=== PATIENT | male | born 1980 | race Caucasian/White ===

== ENCOUNTER 2016-06-10 11:01 | Emergency (ER) | payer OTHER ==
--- NOTE | 2016-06-10 11:13 | ED Physician Documentation ---
General Adult - HISTORIAN Historian: patient - HPI Stated Complaint: Sore Throat Chief Complaint: General Adult Onset: days ago (2) Timing: still present Severity: moderate Further Comments: yes (Pt is a 35 yo male with sore throat and difficulty swallowing x 2 days. Pt has had fever and chills.) - ROS CONST: fever, chills, other (malaise) EYES/ENT: sore throat CVS/RESP: none GI/: none MS/SKIN/LYMPH: none - PAST HX Past History: none Allergies/Adverse Reactions: Allergies Allergy/AdvReac Type Severity Reaction Status Date / Time No Known Allergies Allergy Unverified 06/10/16 11:11 Home Medications: Ambulatory Orders Medication Instructions Recorded NK [NK] 06/10/16 - SOCIAL HX Smoking History: cigarettes - FAMILY HX Family History: No - VITAL SIGNS Vital Signs: Vital Signs Temp Pulse Resp BP Pulse Ox 100.4 F H 110 H 18 140/89 98 06/10/16 11:05 06/10/16 11:05 06/10/16 11:05 06/10/16 11:05 06/10/16 11:05 - REVIEWED ASSESSMENTS Nursing Assessment Reviewed: Yes Vitals Reviewed: Yes Progress - Progress Progress: Rx Penicillin VK 500 mg. Take one every 8 hrs for 10 days. Rx Prednisone 50 mg. Take one daily for 4 days. Start on 06/11/16. General Adult Physical Exam - PHYSICAL EXAM GENERAL APPEARANCE: moderate distress EENT: eye inspection normal, pharyngeal erythema NECK: normal inspection, supple, lymphadenopathy RESPIRATORY: no resp distress, chest non-tender CVS: reg rate & rhythm, heart sounds normal BACK: normal inspection SKIN: warm/dry, normal color EXTREMITIES: non-tender, normal range of motion, no evidence of injury NEURO: oriented X3, motor nml, sensation nml Discharge Clincal Impression: Strep pharyngitis Home Medications: Ambulatory Orders NK [NK] 06/10/16 Condition: Good Disposition: 01 HOME, SELF-CARE Decision to Admit: NO Decision Time: 11:23
[2016-06-10] MEDS: methylPREDNISolone SOD SUCC 40 MG/ML VIAL IM ONE (11:14)
[2016-06-10 11:43] VITALS: BP 128/78
== END 2016-06-10 11:30 | disposition home or self-care (01) ==
LOC: ED 11:01
DX: J02.0 Streptococcal pharyngitis (principal)
CPT/HCPCS: 87880; J2920; 96372; 99282; 99283; J1030

== ENCOUNTER 2017-02-07 00:28 | Emergency (ER) | payer OTHER ==
[2017-02-07 01:06] LABS: BASOPHILS % 0.8 (0.0-1.5); MEAN CORPUSCULAR HEMOGLOBIN 30.8 pg (28.0-34.0); MEAN CORPUSCULAR VOLUME 91.3 fl (80.0-100.0); MONOCYTES % 5.3 % (0.0-11.0); NEUTROPHILS # 4.9 # k/uL (1.4-7.7); eGFR (African) > 60; eGFR (Non-African) > 60
[2017-02-07 01:39] VITALS: BP 131/83
--- NOTE | 2017-02-07 03:13 | ED Physician Documentation ---
General Adult - HISTORIAN Historian: patient - HPI Stated Complaint: L ARM/FACE NUMB Chief Complaint: General Adult Onset: hours Timing: gone now Further Comments: yes (36 year old male patient presents with left arm and face numbness which started 1 hour ago. Reports he was going to sleep and felt the sudden onset. Denies fever, chills, cough, N/V or diarrhea.) - ROS CONST: no problems EYES/ENT: none CVS/RESP: none GI/: none MS/SKIN/LYMPH: none NEURO/PSYCH: denies: headache, fainting, dizziness, tingling, numbness, difficulty walking, difficulty with speech, anxiety, depression - PAST HX Past History: none Other History: none Allergies/Adverse Reactions: Allergies Allergy/AdvReac Type Severity Reaction Status Date / Time No Known Allergies Allergy Verified 02/07/17 00:52 Home Medications: Ambulatory Orders Medication Instructions Recorded NK [NK] 06/10/16 - SOCIAL HX Smoking History: non-smoker - FAMILY HX Family History: No - VITAL SIGNS Vital Signs: Vital Signs Temp Pulse Resp BP Pulse Ox 98.1 F 60 13 131/83 100 02/07/17 01:15 02/07/17 01:15 02/07/17 01:15 02/07/17 01:15 02/07/17 01:15 - REVIEWED ASSESSMENTS Nursing Assessment Reviewed: Yes Vitals Reviewed: Yes ED Results Lab/Radiology - Lab Results Lab Results: Lab Results 02/07/17 02/07/17 00:51 00:51 WBC 10.50 K/ul K/ul (4.00-12.00) RBC 4.89 M/ul M/ul (3.90-5.20) Hgb 15.0 g/dL g/dL (12.0-18.0) Hct 44.6 % % (37.0-53.0) MCV 91.3 fl fl (80.0-100.0) MCH 30.8 pg pg (28.0-34.0) MCHC 33.7 g/dL g/dL (30.0-36.0) RDW 12.8 % % (11.3-14.3) Plt Count 233 K/mm3 K/mm3 (130-400) Neut % (Auto) 47.1 % % (39.0-79.0) Lymph % (Auto) 39.6 % % (16.0-50.0) Boyle % (Auto) 5.3 % % (0.0-11.0) Eos % (Auto) 4.0 % % (0.0-6.8) Baso % (Auto) 0.8 (0.0-1.5) Neut # (Auto) 4.9 # k/uL # k/uL (1.4-7.7) Lymph # (Auto) 4.2 # k/uL H # k/uL (0.6-4.0) Boyle # (Auto) 0.6 # k/uL # k/uL (0.0-0.9) Eos # (Auto) 0.4 # k/uL # k/uL (0.0-0.6) Baso # (Auto) 0.1 # k/uL # k/uL (0.0-0.5) Reactive Lymphs % 3.2 % % (0.0-5.0) Reactive Lymphs # 0.3 # k/uL # k/uL (0.0-0.8) Sodium 135 mmol/L L mmol/L (137-145) Potassium 4.8 mmol/L mmol/L (3.5-5.1) Chloride 102 mmol/L mmol/L (98-107) Carbon Dioxide 27 mmol/L mmol/L (22-30) BUN 18 mg/dL mg/dL (9-20) Creatinine 1.00 mg/dL mg/dL (0.66-1.25) Estimated Creat Clear 116 Est GFR ( Amer) > 60 (60 - ) Est GFR (Non-Af Amer) > 60 (60 - ) Glucose 98 mg/dL mg/dL (74-106) Calcium 8.8 mg/dL mg/dL (8.4-10.2) Total Bilirubin 0.7 mg/dL mg/dL (0.2-1.3) AST 29 U/L U/L (15-46) ALT 25 U/L U/L (13-69) Alkaline Phosphatase 31 U/L L U/L (38-126) Total Protein 7.2 g/dL g/dL (6.3-8.2) Albumin 4.0 g/dL g/dL (3.5-5.0) - Orders Orders: ED Orders Category Date Time Status CBC/PLATELET/DIFF Stat Lab 02/07/17 00:51 Completed CMP Stat Lab 02/07/17 00:51 Completed UDS [DRUG SCREEN URINE MEDICAL ONLY] Stat Lab 02/07/17 Ordered EKG WITH COMPARISON Stat Ther 02/07/17 00:44 Ordered General Adult Physical Exam - PHYSICAL EXAM GENERAL APPEARANCE: [id number] N EENT: eye inspection normal, ENT inspection normal, pharynx normal, no signs of dehydration, DARRELL, no nystagmus, TM's nml, other (2 point discrimination intact on face and arms; sharp and dull intake on face and arms) RESPIRATORY: no resp distress, chest non-tender, breath sounds normal CVS: reg rate & rhythm, heart sounds normal, equal pulses, no murmur, no gallop , PMI nml, no JVD, no friction rub, 24 ABDOMEN: soft, no organomegaly, normal bowel sounds, no abdominal bruit, no distension BACK: normal inspection, no CVA tenderness SKIN: normal color, warm/dry, NR, INT, PAL, DR EXTREMITIES: non-tender, normal range of motion, no evidence of injury, no edema , J, [employer] NEURO: oriented X3, CN's nml as tested, motor nml, sensation nml, mood/affect nml Discharge Clincal Impression: Normal exam, Anxiety Referrals: Primary Doctor,No [Primary Care Provider] - 2 Days Condition: Good Disposition: 01 HOME, SELF-CARE Decision to Admit: NO Decision Time: 01:00
== END 2017-02-07 01:15 | disposition home or self-care (01) ==
LOC: ED 00:28
DX: F41.9 Anxiety disorder, unspecified (principal)
CPT/HCPCS: 80053; 85025; 99283; S1016

== ENCOUNTER 2018-01-06 20:11 | Emergency (ER) | payer OTHER ==
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
[2018-01-06] MEDS ORDERED: ONDANSETRON HCL/PF 4 MG/ 2ML VIAL IVP ONE (20:56)
[2018-01-06] MEDS ORDERED: MORPHINE SULFATE 2 MG/ML PREFILLED SYR IVP ONE (20:57)
[2018-01-06 21:36] VITALS: BP 158/85
== END 2018-01-06 21:25 | disposition short-term general hospital (02) ==
LOC: ED 20:11
DX: T20.02XA Burn of unspecified degree of lip(s), initial encounter (principal); T22.011A Burn of unspecified degree of right forearm, initial encounter; T22.031A Burn of unspecified degree of right upper arm, initial encounter; T20.00XA Burn of unspecified degree of head, face, and neck, unspecified site, initial encounter; T23.001A Burn of unspecified degree of right hand, unspecified site, initial encounter; X01.0XXA Exposure to flames in uncontrolled fire, not in building or structure, initial encounter; Y92.9 Unspecified place or not applicable; Y93.9 Activity, unspecified; Y99.9 Unspecified external cause status
CPT/HCPCS: J2270; J2405; 96374; 96375; S1016